=== PATIENT | female | born 1965 | race Caucasian/White ===

== ENCOUNTER → 2017-01-27 | Day surgery (SDC) | payer OTHER ==
[~2017-01-27] VITALS: Ht 160 cm; Wt 72.6 kg
[~2017-01-27] MED LIST: ASPIRIN EC81 M1 PO; IMMODIUM; LOSARTAN-HCTZ1 EACH PO; NEXIUM40 M1 PO; PAXIL20 M1 PO; VITAMIN D250000 UNIT PO; ZYRTEC10 M3 PO
--- NOTE | 2017-01-27 14:51 | RADIOLOGY REPORT ---
EXAMINATION: Intraoperative fluoroscopy CLINICAL INFORMATION: Left subclavian arteriogram, age of plasty and stent placement COMPARISON: Chest CTA 04/17/2015 TECHNIQUE: Intraoperative fluoroscopy was provided for use by Dr. Avila. A total of 13 sequences were saved to PACS. TOTAL FLUOROSCOPIC TIME: 12 minutes and 30 seconds FINDINGS\E\IMPRESSION: Intraoperative fluoroscopy provided for use by Dr. Avila. Please see operative note for detailed findings.
--- NOTE | 2017-01-27 15:37 | Operative Report ---
Operative/Inv Procedure Report Surgery Date: 01/27/17 Name of Procedure: - Left brachial artery cutdown - Left arm angiogram - Intravascular ultrasound of left subclavian artery - Angioplasty and stenting of proximal left subclavian artery Pre-Operative Diagnosis: Left subclavian steal Post-Operative Diagnosis: Same Estimated Blood Loss: scant Surgeon/Social Services Director: ISAC AL MD Anesthesia: general endotracheal tube Operative/Procedure Note Note: I have followed the patient for the last year and a half for left subclavian steal. Initially, her symptoms were vague and mild. However, in the last visit, she presented with progressively worsening dizziness, imbalance and left arm symptoms. Prior CAT scan had shown severe stenosis of the proximal left subclavian artery. An angiogram with angioplasty or stenting of the subclavian artery was discussed with the patient. The nature of the procedure including its possible complications including but not limited to bleeding, infection, blood clots, injury to vessels, and need for re-intervention were discussed. An informed consent was obtained. Patient was taken to the operating room and placed supine on the table. A timeout was called according to protocol. Preoperative antibiotic had been started. After satisfactory induction of anesthesia, the patient was prepped and draped in standard surgical fashion. The course of the brachial artery was marked on the skin using an ultrasound as the patient did not have palpable brachial pulse. Using a scalpel, skin incision was made and a large heel fashion over the course of the brachial artery which was approximately about 3 cm. The incision was carried down through the subcutaneous tissue and fascia using electrocautery. Brachial artery was sharply dissected using Metzenbaum scissors. This artery was very small in caliber and at most was maybe 2 mm. Proximal and distal control were obtained with loosely placed vessel loops. Then a micropuncture needle was entered into the brachial artery. The micropuncture wire was then advanced without difficulty. Micropuncture sheath was then advanced over the wire. A diagnostic angiogram of the left arm showed that the sheath was indeed in the brachial artery and patent radial and ulnar arteries. Then a Bentson wire was advanced into the proximal subclavian artery under direct fluoroscopic guidance. The micropuncture sheath was exchanged with a 5 Cypriot sheath. 6000 units of heparin was given.Then with the aid of a glide wire and glide catheter, the Glidewire was advanced into the aorta. Then the Glidewire was exchanged with an 014 wire. Then intravascular ultrasound was advanced over the wire and intravascular ultrasound was performed as the catheter was pulled back. This showed severe greater than 90% stenosis of the proximal left subclavian arteryThen a pigtail catheter was advanced over the wire and placed into the aorta just distal to the takeoff of the left subclavian artery. From this position, an angiogram was performed which showed severe stenosis at the proximal left subclavian artery. Vertebral artery was patent. Then the 5 Cypriot sheath was exchanged with a 65 cm 6 Cypriot destination sheath. This sheath was exchanged over a Hernandez. Then a 8 x 17 mm bare metal balloon expandable stent was used to stent the tight stenosis in the proximal circumflex within artery. Post stenting angiogram through a pigtail showed that there was a Mild stenosis at the ostium of the some driven artery. This was also angioplastied with an 8 x 17 mm balloon. Final angiogram showed resolution of the stenosis in the subclavian artery with patent brachial artery radial and ulnar arteries. Wires and catheters were removed. Proximal and distal control were obtained. The puncture site was then closed with 7-0 Prolene suture in an interrupted fashion. Post angiogram on closing, the patient had palpable radial pulse. The wound was then irrigated. The wound was then closed in 3 layers with deep layers being closed with 3-0 Vicryl suture. The skin was then closed with 4 -0 Monocryl suture in a subcuticular fashion. Sterile dressing was applied. The patient tolerated the procedure well and was taken to the recovery room in stable condition.
== END ==
LOC: STS 02:00
DX: I77.1 Stricture of artery (principal); I10 Essential (primary) hypertension; Z87.891 Personal history of nicotine dependence; R20.8 Other disturbances of skin sensation; K21.9 Gastro-esophageal reflux disease without esophagitis; Z79.82 Long term (current) use of aspirin
CPT/HCPCS: 73060-LT; C1725; J1644; J2250; Q9967

== ENCOUNTER 2017-01-30 13:35 | Emergency (ER) | payer OTHER ==
[~2017-01-30] VITALS: Ht 160 cm; Wt 74.8 kg
--- NOTE | 2017-01-30 14:48 | ED DYSPNEA/ASTHMA COMPLAINT ---
History of Present Illness General Chief Complaint: Dyspnea (COPD, CHF, Other) Stated Complaint: SOB, COUGHING, S/P PROCEDURE ON 01/27 Source: patient Exam Limitations: no limitations Vital Signs & Intake/Output Vital Signs & Intake/Output Vital Signs Date Time Temp Pulse Resp B/P B/P Pulse O2 O2 Flow FiO2 Mean Ox Delivery Rate 01/30 1721 97.9 84 18 132/84 97 Room Air 01/30 1648 98 Room Air 01/30 1337 98.2 95 16 162/99 95 Room Air Allergies Coded Allergies: No Known Allergies (01/23/17) Reconcile Medications Aspirin (Ecotrin*) 81 MG TABLET.DR 1 TAB PO DAILY PROPHO (Reported) Cetirizine HCl (Zyrtec) 10 MG TABLET 1 TAB PO DAILY ALLERGIES (Reported) Ergocalciferol (Vitamin D2) (Vitamin D2) 50,000 UNIT CAPSULE 1 CAP PO QW VIT D DEFICIENCY (Reported) Esomeprazole (Nexium) 40 MG CAPSULE.DR 1 CAP PO BID GERD (Reported) [IMMODIUM] DIARRHEA (Reported) Losartan/Hydrochlorothiazide (Losartan-Hctz 100-12.5 MG Tab) 100 MG-12.5 MG TABLET 1 TAB PO DAILY HTN (Reported) Paroxetine HCl (Paxil) 20 MG TABLET 1 TAB PO DAILY DEPRESSION (Reported) Triage Note: 51 Y/O FEMALE C/O SOB AND COUGHING S/P HAVING A STENT PLACED IN SUBCLAVIAN ARTERY ON FRIDAY. STATES SHE KEPT WAKING UP OVERNIGHT DUE TO FEELING LIKE SHE COULDN'T CATCH HER BREATH. DENIES C/P. DENIES SOB IN TRIAGE, SAT 95%. PT STATES SHE WAS STARTED ON PLAVIX AND HAS HAD 3 DOSES. PROCEDURE WAS DONE BY DR GUEVARA ([place]) Triage Nurses Notes Reviewed? yes Onset: Gradual Duration: day(s):, continues in ED, waxing and waning Severity: mild, moderate Activities at Onset: none Prior Episodes/Possible Cause: no prior episodes HPI: Patient presents for evaluation of dyspnea and cough yesterday, status post left subclavian artery stenting as treatment for subclavian steal syndrome. Patient' s stent was placed on January 27. Since then she has had intermittent shortness of breath and nonproductive cough without associated fever, cold symptoms, chest pain. Past History Travel History Traveled to [place] past 21 day No Medical History Any Pertinent Medical History? see below for history Neurological: NONE EENT: NONE Cardiovascular: hypertension Respiratory: NONE Gastrointestinal: NONE Hepatic: NONE Renal: NONE Musculoskeletal: NONE Psychiatric: NONE Endocrine: NONE Blood Disorders: NONE Cancer(s): NONE LEATHER STAKER/Reproductive: NONE Surgical History Surgical History: see hpi Psychosocial History What is your primary language Arabic Tobacco Use: Quit >30 days ago Family History Hx Contributory? No Review of Systems Review of Systems Constitutional: Reports: no symptoms. EENTM: Reports: no symptoms. Respiratory: Reports: see HPI. Cardiovascular: Reports: no symptoms. GI: Reports: no symptoms. Genitourinary: Reports: no symptoms. Musculoskeletal: Reports: no symptoms. Skin: Reports: no symptoms. Neurological/Psychological: Reports: no symptoms. Hematologic/Endocrine: Reports: no symptoms. Immunologic/Allergic: Reports: no symptoms. All Other Systems: Reviewed and Negative Physical Exam Physical Exam Respiratory: see below Comments: Gen.: Well-nourished, well-developed, no acute respiratory distress. Head: Normocephalic, atraumatic. Eyes: Normal inspection bilaterally Ears: Normal inspection bilaterally Nose: Normal inspection Throat/mouth : Moist mucosa Neck: Supple, full range of motion, no goiter Heart: Regular rate and rhythm, no murmurs rubs or gallops Lungs: Clear to auscultation bilaterally with normal air entry Chest: Nontender Back: Normal range of motion Abdomen: Soft, nontender, nondistended, normal bowel sounds Extremities: Normal range of motion grossly, equal radial pulses, no cyanosis clubbing or edema Neurologic: Cranial nerves grossly intact, speech is clear Skin: warm and dry Psychiatric: Calm, cooperative, no apparent delusions or hallucinations Core Measures ACS in differential dx? No Severe Sepsis Present: No Septic Shock Present: No Progress Differential Diagnosis: dvt, pe, PNEUMONIA, PNEUMOTHORAX, ELECTROLYTE ABNORMALITY, ANEMIA Plan of Care: Orders Procedure Date/time Status Telemetry/Credit Products Officer 01/30 1535 Active TROPONIN LEVEL 01/30 1535 Complete MAGNESIUM 01/30 1535 Complete CBC WITHOUT DIFFERENTIAL 01/30 1535 Complete B-TYPE NATRIURETIC PEP (BNP) 01/30 1535 Complete BASIC METABOLIC PANEL 01/30 1535 Complete EKG 01/30 1535 Active Laboratory Tests 01/30/17 1645: Anion Gap 10, Estimated GFR > 60, BUN/Creatinine Ratio 17.1, Glucose 86, Calcium 9.3, Magnesium 1.9, Troponin I < 0.01, Iie-J-Bvqmehrukmj Pept 44.5, CBC w Diff NO MAN DIFF REQ, RBC 4.22, MCV 85.6, MCH 28.0, RDW 14.0, MPV 7.0 L, Gran % 68.4 , Lymphocytes % 22.1, Monocytes % 7.0, Eosinophils % 2.4, Basophils % 0.1, Absolute Granulocytes 7.1 H, Absolute Lymphocytes 2.3, Absolute Monocytes 0.7 H, Absolute Eosinophils 0.3, Absolute Basophils 0, PUBS MCHC 32.7 L Diagnostic Imaging: Discussed w/RAD: Ultrasound. Radiology Impression: PATIENT: MANUELA MACIAS PRESENT AGE: 51 PATIENT ACCOUNT NO: [id number] : 63 LOCATION: [facility] ORDERING PHYSICIAN: PRANEETH VANEGAS MD SERVICE DATE: 01/30/172382 EXAM TYPE: US - US-UNILATERAL VENOUS DOPPLER EXAMINATION: US TRIPLEX UPPER EXTREMITY, LEFT CLINICAL INFORMATION: Postoperative COMPARISON: None TECHNIQUE: Color-flow triplex imaging with spectral analysis and compression Doppler were performed on the upper extremity. FINDINGS: Respiratory variation, normal compression and augmented flow are noted throughout the left upper extremity. The visualized internal jugular vein, subclavian vein, axillary vein, brachial vein, basilic vein, and cephalic vein show no evidence of deep venous thrombosis. A left subclavian artery stent is in place. IMPRESSION: Normal triplex scan without evidence of deep venous thrombosis involving the left upper extremity. DICTATED BY: SUSAN LINDO MD DATE/TIME DICTATED:01/30/171620 REED OR WIND INSTRUMENT REPAIRER: ELHAM DATE/TIME TRANSCRIBED:01/30/171620 CONFIDENTIAL, DO NOT COPY WITHOUT APPROPRIATE AUTHORIZATION. <Electronically signed in Other Vendor System> SIGNED BY: SUSAN LINDO MD 01/30/171625, PATIENT: MANUELA MACIAS PRESENT AGE: 51 PATIENT ACCOUNT NO: [id number] : 63 LOCATION: [facility] ORDERING PHYSICIAN: PRANEETH VANEGAS MD SERVICE DATE: 01/30/17670 EXAM TYPE: US - US-EXT BILAT VENOUS DOPPLER EXAMINATION: US TRIPLEX OF LOWER EXTREMITIES, BILATERAL CLINICAL INFORMATION: Bilateral lower extremity pain. COMPARISON: None TECHNIQUE: Color-flow triplex imaging with spectral analysis and compression Doppler were performed on the lower extremities. FINDINGS: Respiratory variation, normal compression and augmented flow are noted throughout the lower extremities. The visualized common femoral vein, superficial femoral vein, profunda femoral vein, popliteal vein and midcalf peroneal and posterior tibial venous segments show no evidence of deep venous thrombosis. There is no Cruz's cyst. IMPRESSION: Normal triplex scan without evidence of deep venous thrombosis involving the bilateral lower extremities. DICTATED BY: SUSAN LINDO MD DATE/TIME DICTATED:01/30/171553 REED OR WIND INSTRUMENT REPAIRER:ELHAM DATE/TIME TRANSCRIBED:01/30/171553 CONFIDENTIAL, DO NOT COPY WITHOUT APPROPRIATE AUTHORIZATION. <Electronically signed in Other Vendor System> SIGNED BY: SUSAN LINDO MD 01/30/171557 CXR Impression: PATIENT: MANUELA MACIAS PRESENT AGE : 51 PATIENT ACCOUNT NO: [id number] : 63 LOCATION: [facility] ORDERING PHYSICIAN: PRANEETH VANEGAS MD SERVICE DATE: 01/30/17 EXAM TYPE: RAD - XRY-PORTABLE CHEST XRAY EXAMINATION: XR PORTABLE CHEST CLINICAL INFORMATION: Status post subclavian stent. CHF COMPARISON: None TECHNIQUE: Portable frontal view of the chest was obtained. FINDINGS: No significant abnormality is noted involving the heart, lungs, mediastinum, bony thorax or soft tissues. IMPRESSION : Unremarkable examination. I do not see the reported left subclavian stent DICTATED BY: MIGUE DALEY MD DATE/TIME DICTATED:01/30/171622 REED OR WIND INSTRUMENT REPAIRER:ELHAM DATE/TIME TRANSCRIBED:01/30/171622 CONFIDENTIAL, DO NOT COPY WITHOUT APPROPRIATE AUTHORIZATION. <Electronically signed in Other Vendor System> SIGNED BY: MIGUE DALEY MD 01/30/17 1630 Initial ED EKG: NSR, rate (78) Prior EKG: unchanged Comments: 01/30/2017 6:01:30 PM patient evaluated by Dr. Slater, who feels the patient is stable for discharge. I have updated Manuela on her test results. She likewise feels comfortable returning home. Departure Departure Disposition: HOME OR SELF CARE Condition: Stable Clinical Impression Primary Impression: Dyspnea Qualifiers: Dyspnea type: unspecified Qualified Code: R06.00 - Dyspnea, unspecified Referrals: JULIANE LUCIO,KADEN Mejia (PCP/Family) Additional Instructions: Follow-up with Dr. slater as discussed with him. Please follow-up with Dr. CARDOZO as soon as possible for reevaluation of your shortness of breath. Since the reason for your symptoms is somewhat unclear at this point please return if any concerns or sudden worsening. Please note that there might be incidental findings in your evaluation that are unrelated to the current emergency department visit. Please notify your primary care doctor about this emergency department visit in order to obtain and review all of the testing performed so that these incidental findings can be monitored as needed. If you had an x-ray performed, please understand that some fractures may not be seen on the initial set of x-rays. If your symptoms persist you might need a repeat set of x-rays to check for such a fracture. If you had a laceration evaluated, please understand that foreign bodies such as glass or wood may not be visible to the naked eye or on plain x-rays. If the wound becomes red, swollen, increasingly more painful or if there is any drainage from the wound, please have it reevaluated by a physician for the possibility of a retained foreign body. Thank you for choosing the [facility] Emergency Department for your care. It was a pleasure to serve you today. Praneeth Vanegas M.D. [facility] Departure Forms: Customer Survey General Discharge Information Critical Care Note Critical Care Note Critical Care Time: non-applicable
--- NOTE | 2017-01-30 15:58 | ULTRASOUND REPORT ---
EXAMINATION: US TRIPLEX OF LOWER EXTREMITIES, BILATERAL CLINICAL INFORMATION: Bilateral lower extremity pain. COMPARISON: None TECHNIQUE: Color-flow triplex imaging with spectral analysis and compression Doppler were performed on the lower extremities. FINDINGS: Respiratory variation, normal compression and augmented flow are noted throughout the lower extremities. The visualized common femoral vein, superficial femoral vein, profunda femoral vein, popliteal vein and midcalf peroneal and posterior tibial venous segments show no evidence of deep venous thrombosis. There is no Cruz's cyst. IMPRESSION: Normal triplex scan without evidence of deep venous thrombosis involving the bilateral lower extremities.
--- NOTE | 2017-01-30 16:26 | ULTRASOUND REPORT ---
EXAMINATION: US TRIPLEX UPPER EXTREMITY, LEFT CLINICAL INFORMATION: Postoperative COMPARISON: None TECHNIQUE: Color-flow triplex imaging with spectral analysis and compression Doppler were performed on the upper extremity. FINDINGS: Respiratory variation, normal compression and augmented flow are noted throughout the left upper extremity. The visualized internal jugular vein, subclavian vein, axillary vein, brachial vein, basilic vein, and cephalic vein show no evidence of deep venous thrombosis. A left subclavian artery stent is in place. IMPRESSION: Normal triplex scan without evidence of deep venous thrombosis involving the left upper extremity.
--- NOTE | 2017-01-30 16:30 | RADIOLOGY REPORT ---
EXAMINATION: XR PORTABLE CHEST CLINICAL INFORMATION: Status post subclavian stent. CHF COMPARISON: None TECHNIQUE: Portable frontal view of the chest was obtained. FINDINGS: No significant abnormality is noted involving the heart, lungs, mediastinum, bony thorax or soft tissues. IMPRESSION: Unremarkable examination. I do not see the reported left subclavian stent
[2017-01-30 16:59] LABS: ABSOLUTE BASOPHIL COUNT 0 /CUMM (0.0-0.2); ABSOLUTE EOSINOPHIL COUNT 0.3 /CUMM (0.0-0.7); ABSOLUTE GRANULOCYTE CT 7.1 /CUMM (1.4-6.5); ABSOLUTE LYMPH COUNT 2.3 /CUMM (1.2-3.4); ABSOLUTE MONOCYTE COUNT 0.7 /CUMM (0.10-0.60); BASOPHIL % 0.1 % (0.0-2.0); EOSINOPHIL % 2.4 % (0-5); GRANULOCYTE % 68.4 % (42.2-75.2); HEMATOCRIT 36.1 % (37-47); MEAN CORPUSCULAR HGB CONC 32.7 G/DL (33.0-37.0); MEAN CORPUSCULAR VOLUME 85.6 FL (81.0-99.0); PLATELET COUNT 313 /CUMM (130-400); RED BLOOD CELL CT 4.22 /CUMM (4.20-5.40); WHITE BLOOD CELL COUNT 10.4 /CUMM (4.8-10.8)
[2017-01-30 17:21] VITALS: BP 132/84
== END 2017-01-30 18:15 ==
LOC: ERH 13:35
PROVIDERS: Emergency Medicine
DX: R06.00 Dyspnea, unspecified (principal)
CPT/HCPCS: 93005; 93010; 93970

== ENCOUNTER 2017-11-28 09:25 | Emergency (ER) | payer OTHER ==
[~2017-11-28] VITALS: Ht 157.5 cm; Wt 75.8 kg
[2017-11-28 10:35] LABS: ABSOLUTE BASOPHIL COUNT 0 /CUMM (0.0-0.2); ABSOLUTE EOSINOPHIL COUNT 0 /CUMM (0.0-0.7); ABSOLUTE GRANULOCYTE CT 11.9 /CUMM (1.4-6.5); ABSOLUTE LYMPH COUNT 1.4 /CUMM (1.2-3.4); ABSOLUTE MONOCYTE COUNT 0.6 /CUMM (0.10-0.60); BASOPHIL % 0 % (0.0-2.0); EOSINOPHIL % 0.1 % (0-5); GRANULOCYTE % 85.7 % (42.2-75.2); MEAN CORPUSCULAR HGB 26.4 PG (27.0-31.0); MEAN CORPUSCULAR HGB CONC 32.7 G/DL (33.0-37.0); MEAN CORPUSCULAR VOLUME 80.9 FL (81.0-99.0); MEAN PLATELET VOLUME 6.8 FL (7.4-10.4); PLATELET COUNT 427 /CUMM (130-400); RBC DISTRIBUTION WIDTH 15.4 % (11.5-14.5); WHITE BLOOD CELL COUNT 13.8 /CUMM (4.8-10.8)
[2017-11-28 10:43] LABS: PT 12.7 SEC (9.4-12.5); PTT 28 SEC (25-37)
[2017-11-28] MEDS ORDERED: CLOPIDOGREL75 M1 PO (10:44)
--- NOTE | 2017-11-28 11:12 | ED NOSE COMPLAINT ---
History of Present Illness General Chief Complaint: Epistaxis/Nasal Foreign Body Stated Complaint: EPISTAXIS X 24 HRS, ON PLAVICS Source: patient Exam Limitations: no limitations Allergies Coded Allergies: No Known Allergies (01/23/17) Reconcile Medications Aspirin (Ecotrin*) 81 MG TABLET.DR 1 TAB PO DAILY PROPHO (Reported) Azithromycin (Zithromax) 250 MG TABLET 1 DP PO AD nasal packing 2 the first day followed by 1 for days 2-5 Clopidogrel Bisulfate (Clopidogrel) 75 MG TABLET 1 TAB PO DAILY BLOOD THINNER (Reported) Diazepam (Valium) 5 MG TABLET 1 TAB PO BIDP PRN pain Esomeprazole (Nexium) 40 MG CAPSULE.DR 1 CAP PO BID GERD (Reported) Losartan/Hydrochlorothiazide (Losartan-Hctz 100-12.5 MG Tab) 100 MG-12.5 MG TABLET 1 TAB PO DAILY HTN (Reported) Paroxetine HCl (Paxil) 20 MG TABLET 1 TAB PO DAILY DEPRESSION (Reported) Triage Note: C/O EPISTAXIS SINCE 1800 YESTERDAY, HAD RECENT BALLOON SURGERY FOR SINUS PROBLEM 10/30. SAW DR. MANUEL IN OFFICE LAST PM, PT STATES HE CAUTERIZED BLEEDING, BUT BLEEDING STARTED AGAIN DURING NIGHT. SLIGHT BLEEDING NOTED. Triage Nurses Notes Reviewed? 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 Patient states that she first noticed that her nose and bleeding last night. She went to see an ear nose and throat doctor Janel who cauterized her nosE. The bleeding initially stopped until today when it started again worse than usual. The bleeding is mostly coming from the left naris but also the right. States that she swallowed a large amount of blood to and has been vomiting coffee ground material. She takes aspirin and Plavix. There was no trauma to her nose. She does report feeling dizzy and lightheaded no chest pain or shortness of breath. (Damion Berkowitz) Vital Signs & Intake/Output Vital Signs & Intake/Output Vital Signs Date Time Temp Pulse Resp B/P B/P Pulse O2 O2 Flow FiO2 Mean Ox Delivery Rate 11/28 1521 98.4 105 18 142/80 96 Room Air 11/28 1239 96.6 111 18 131/88 96 Room Air 11/28 0956 97 11/28 0939 96.2 130 20 155/91 99 Room Air (Romina LUCIO,Praneeth Whitley) Past History Travel History Traveled to [place] past 21 day No Medical History Any Pertinent Medical History? see below for history Neurological: NONE EENT: NONE Cardiovascular: hypertension Respiratory: NONE Gastrointestinal: NONE Hepatic: NONE Renal: NONE Musculoskeletal: NONE Psychiatric: NONE Endocrine: NONE Blood Disorders: NONE Cancer(s): NONE BUSINESS TECHNOLOGY ANALYST/Reproductive: NONE Surgical History Surgical History: see hpi Psychosocial History What is your primary language Sierra Leonean Tobacco Use: Never used ETOH Use: occasional use Family History Hx Contributory? No (Damion Berkowitz) Review of Systems Review of Systems Constitutional: Reports: no symptoms. EENTM: Reports: epistaxis, nasal pain. Respiratory: Reports: no symptoms. Cardiovascular: Reports: no symptoms. GI: Reports: see HPI, nausea. Genitourinary: Reports: no symptoms. Musculoskeletal: Reports: no symptoms. Skin: Reports: no symptoms. Neurological/Psychological: Reports: no symptoms. Hematologic/Endocrine: Reports: no symptoms. Immunologic/Allergic: Reports: no symptoms. All Other Systems: Reviewed and Negative (Damion Berkowitz) Physical Exam Physical Exam General Appearance: well developed/nourished, alert, awake, anxious, moderate distress Head: atraumatic, normal appearance Eyes: Bilateral: normal appearance, PERRL, EOMI. Nose: active bleeding, dried blood, ACTIVE BLEEDING FROM BOTH NARES WORSE ON THE LEFT. LARGE AMOUNT OF BLOOD CLOTS IN THE LEFT NARIS. nO VISUALIZED BLEEDING VESSEL THERE IS ALSO BLOOD IN THE POSTERIOR PHARYNX Mouth/Throat: normal mouth inspection, BLOOD IN POSTERIOR PHARYNX Neck: normal inspection, supple, full range of motion Cardiovascular/Respiratory: normal breath sounds, normal peripheral pulses, no respiratory distress, tachycardia Back: normal inspection, normal range of motion Neurologic/Psych: no motor/sensory deficits, awake, alert, oriented x 3, normal gait Skin: intact, normal color, warm/dry (Damion Berkowitz) Progress Differential Diagnoses I considered the following diagnoses in my evaluation of the patient: [Anterior epistaxis, posterior epistaxis, coagulopathy, thrombocytopenia] Initial ED EKG: none (Damion Berkowitz) Plan of Care: Orders Procedure Date/time Status MISTAKE 11/28 1243 Active PARTIAL THROMBOPLASTIN TIME 11/28 1011 Complete PROTHROMBIN TIME 11/28 1011 Complete COMPREHENSIVE METABOLIC PANEL 11/28 1011 Complete CBC WITHOUT DIFFERENTIAL 11/28 1011 Complete TYPE & SCREEN (NOT X-MATCH) 11/28 1011 Complete Laboratory Tests 11/28/17 1026: Anion Gap 14, Estimated GFR > 60, BUN/Creatinine Ratio 55.7 H, Glucose 155 H, Calcium 9.3, Total Bilirubin 0.7, AST 21, ALT 30, Alkaline Phosphatase 74, Total Protein 7.4, Albumin 4.5, Globulin 2.9, Albumin/Globulin Ratio 1.6, PT 12.7 H, INR 1.16, APTT 28, CBC w Diff NO MAN DIFF REQ, RBC 4.20, MCV 80.9 L, MCH 26.4 L, MCHC 32.7 L, RDW 15.4 H, MPV 6.8 L, Gran % 85.7 H, Lymphocytes % 10.1 L, Monocytes % 4.1, Eosinophils % 0.1, Basophils % 0, Absolute Granulocytes 11.9 H , Absolute Lymphocytes 1.4, Absolute Monocytes 0.6, Absolute Eosinophils 0, Absolute Basophils 0 Patient seen and evaluated. On initial evaluation she is tachycardic and in moderate distress. There is a large amount of active bleeding from both nares worse on the left. There is also blood in the posterior pharynx. A large amount of blood clot was tended to be removed by suction from the left naris. Afrin nasal spray was applied to both nares. A thrombin coated anterior/ posterior Rhino Rocket was placed into the left naris. Patient tolerated well. There was good hemostasis. Patient was medicated with IV fluids IV Zofran and IV morphine. Patient did report pain in her nares after the Rhino Rocket is placed. Patiently monitored to ensure good hemostasis. Spoke with Dr. ALLEN EAR nose and throat doctor that saw the patient last night. He was also the surgeon that did her sinus balloon last month. He agreed with the plan of inserting a Rhino Rocket. He also recommended holding aspirin and Plavix for at least a week. He recommends covering the patient with Zithromax. He will follow up with her on Friday at 145 for removal of Rhino Rocket. A call was placed the patient's vascular surgeon who is treating her subclavian artery thrombosis in order to obtain permission to stop aspirin Plavix. Patient continues to have good hemostasis is been no rebleeding. Attempted to ambulate her in the emergency department but she reported feeling too weak and dizzy. Fluids ordered we'll check orthostatics we'll continue to monitor. pt was able to ambulate without rebleeding. she is feeling better has a steady gait. spoke with vascular they oked holding plavix for 1 week. pt was given rx for z-pack and valium yulissa pain control. follow up with ent on friday at 145. discussed return precauitons in detail. pt agrees with the plan. (Damion Berkowitz) (Romina LUCIO,Praneeth Whitley) Departure Departure Disposition: HOME OR SELF CARE Condition: Stable Clinical Impression Primary Impression: Epistaxis Referrals: Yuridia LUCIO,Timothy Miller MD,Jeff Mejia (PCP/Family) Additional Instructions: Follow-up with Dr. MANUEL at 145 on Friday for removal of Rhino Rocket. Take antibiotics as directed for the full course. Valium as needed for pain. Monitor symptoms return with any concerns. Departure Forms: Customer Survey General Discharge Information Prescriptions: Current Visit Scripts Diazepam (Valium) 1 TAB PO BIDP PRN pain #10 TAB Azithromycin (Zithromax) 1 DP PO AD #6 TAB 2 the first day followed by 1 for days 2-5 (Damion Berkowitz) PA/[employer] Co-Sign Statement Statement: ED Attending supervision documentation- [X] I saw and evaluated the patient. I have also reviewed all the pertinent lab results and diagnostic results. I agree with the findings and the plan of care as documented in the PA's/[employer] [facility]'s documentation. Patient presents for evaluation of epistaxis, according to her nose and throat doctor, she had turbinate surgery last month. Physical examination reveals no active bleeding with a left nostril Rhino Rocket placed by PA prior to my evaluation. [] I have reviewed the ED Record and agree with the PA's/[facility]'s documentation. [] Additions or exceptions (if any) to the PAs/[facility]'s note and plan are summarized below: [] (Romina LUCIO,Praneeth Whitley) Procedures Epistaxis/Nasal Foreign Body Status: bleeding Clots Cleared Nasal Passage: by patient blowing, wall suction Nasal Drops Instilled: Left: Afphrin. Ext Pressure/Nose Pinch (min): 15 Inspected With: otoscope, nasal speculum Bleeding Site: left nares no bleeding vessel observed Hemostatic Nasal Balloon: Left: Inserted Anterior, Inserted Posterior. Nasal Rocket: Left: Inserted Anterior, Inserted Posterior. Applied: Left: Other Anterior, Other Posterior (thrombin). (Damion Berkowitz)
[2017-11-28 15:21] VITALS: BP 142/80
[2017-11-28] MEDS ORDERED: VALIUM5 M2 PO (15:52)
[2017-11-28] MEDS ORDERED: ZITHROMAX250 M2 PO (15:52)
== END 2017-11-28 16:11 ==
LOC: ERH 09:25
PROVIDERS: Physician Assistant Medical
DX: R04.0 Epistaxis (principal)
CPT/HCPCS: 96361; 96374; 96375; J2405